=== PATIENT | male | born 1965 | race Caucasian/White ===

== ENCOUNTER → 2017-02-19 | Outpatient (CLI) | payer OTHER ==
[~2017-02-19] MED LIST: Iopamidol 755 MG/ML 500 ML Multipack Bottle IVPUSH STA
--- NOTE | 2017-02-19 11:10 | CT ---
EXAMINATION: CT chest with contrast HISTORY: Swelling COMPARISON: None TECHNIQUE: Axial CT images obtained through the chest following the administration of 75 mL of Isovu e-370 in the right antecubital fossa. Coronal and sagittal reconstructions obtained. FINDINGS: The lungs are clear without focal consolidation. No pleural effusion or pneumothorax. Ther e is mild dependent atelectasis. The heart is normal in size without a pericardial effusion. Nonpath ologically enlarged mediastinal and hilar lymph nodes are noted. The thoracic aorta is normal in alexander iber. The main and central pulmonary arteries are patent. The central airways are clear. No axillary lymphadenopathy. No lump or mass identified. The visualized images of the upper abdomen appear unremarkable. No suspicious osseous abnormalities. IMPRESSION: 1. No acute cardiopulmonary findings.
== END ==
LOC: MW.DI 08:49
DX: R22.2 Localized swelling, mass and lump, trunk (principal)
CPT/HCPCS: 71260; 71260-26

== ENCOUNTER → 2017-03-20 | Outpatient (CLI) | payer OTHER ==
--- NOTE | 2017-03-20 16:36 | CT ---
EXAMINATION: CT Soft tissue neck with and without contrast HISTORY: Unspecified voice and resonance disorder COMPARISON: None TECHNIQUE: Axial CT images obtained through the neck before and following the administration of 80 m L of Isovue-370 left antecubital fossa. Coronal and sagittal reconstructions obtained. FINDINGS: Healed nasopharyngeal and oropharyngeal mucosal structures appear symmetric. There are sma ll pockets of gas noted within the hypopharynx soft tissues predominantly inferior to the right piri form sinus and hyoid. This could represent an underlying piriform or upper airway diverticulum. Ther e is also mildly increased soft tissue within the region of the left para forearm sinus relative to the right. The larynx otherwise appears normal. The upper trachea is also normal. No bulky cervical lymphadenopathy. The parotid and submandibular glands appear normal. Thyroid gland is normal. The vi sualized paranasal sinuses, mastoid air cells, and middle ears are clear. No suspicious osseous abnormalities identified. IMPRESSION: 1. Asymmetrically increased soft tissue within the region of the left piriform sinus. There is also some mucosal gas pockets within the region of the hypopharynx, right greater than left. Direct visua lization may be beneficial.
== END ==
LOC: MW.DI 08:30
DX: R49.9 Unspecified voice and resonance disorder (principal); J34.89 Other specified disorders of nose and nasal sinuses
CPT/HCPCS: 70492; Q9967

== ENCOUNTER 2018-03-06 13:42 | Emergency (ER) | payer OTHER ==
[2018-03-06] MEDS ORDERED: Sodium Chloride 0.9% 10 ML Syringe FLUSH PRN (13:51)
[2018-03-06] MEDS ORDERED: Sodium Chloride 0.9% 2.5 ML Syringe FLUSH PRN (13:51)
[2018-03-06] MEDS ORDERED: Aspirin 81 MG Tab.Chew PO ONE (13:51)
[2018-03-06] MEDS ORDERED: Sodium Chloride 0.9% 1,000 ML IV ONE (13:51)
[2018-03-06] MEDS ORDERED: Diltiazem 25 MG/5 ML SDV IVPUSH ONE (13:51)
--- NOTE | 2018-03-06 13:58 | EDM.PDOC ---
ED HPI GENERAL MEDICAL PROBLEM - General Chief Complaint: Cardiovascular Problem Stated Complaint: UNK Time Seen by Provider: 03/06/18 13:49 - History of Present Illness INITIAL COMMENTS - FREE TEXT/NARRATIVE: HISTORY AND PHYSICAL: History of present illness: Patient is a 53-year-old male with no stated medical history who presents with on and off palpitations that started yesterday morning at 8 AM. He says that they were on and off yesterday symptoms lasting an hour or so but there was no discomfort with it no shortness of breath diaphoresis nausea vomiting or lightheadedness. He says that last evening to bed and slept fine and did not wake up with him overnight with the symptoms but this morning after he had been up for a while the symptoms restarted at 8 AM again. He presented to the [place] [facility] who did an EKG showing that he had new A. fib with RVR and embolus was called and he was transported here. The patient was given Cardizem 20 mg IV by paramedics in route for repeat that was variable from 120-180. The patient denies any discomfort with this nor does he have shortness of breath diaphoresis abdominal pain nausea vomiting or lightheadedness. The patient has a past social history of one pack a day smoking years old but he does not drink alcohol or do drugs. He admits that he drinks copious amounts of Dr. Oro all day. His dad had heart disease in his 50s this patient has never had a stress test or cardiac evaluation. No known history of thyroid problems and has been eating and drinking normally without diarrhea. He's had no recent illnesses that involve fevers chills coughing vomiting or diarrhea and has no abdominal complaints or leg swelling. Currently in the ED the patient says he does feel that his heart is beating fast and irregularly but has no discomfort with that or other symptoms Review of systems: As per history of present illness and below otherwise all systems reviewed and negative. Past medical history: As per history of present illness and as reviewed below otherwise noncontributory. Surgical history: As per history of present illness and as reviewed below otherwise noncontributory. Social history: No reported history of drug or alcohol abuse. Family history: As per history of present illness and as reviewed below otherwise noncontributory. Physical exam: General: Well-developed well-nourished man who is nontoxic and speaking clearly and easily in the ED. Vital signs of the note by me HEENT: Atraumatic, normocephalic, negative for conjunctival pallor or scleral icterus, mucous membranes moist, throat clear, neck supple, nontender, trachea midline. Lungs: Clear to auscultation, breath sounds equal bilaterally, chest nontender. No wheezing stridor or work of breathing Heart: S1S2, irregular rhythm and tachycardic rate which is variable on my evaluation and no overt murmurs, negative for clicks, rubs, or JVD. Abdomen: Soft, nondistended, nontender. Negative for masses or hepatosplenomegaly. NABS Pelvis: Stable nontender. Genitourinary: Deferred. Rectal: Deferred. Extremities: Atraumatic, negative for cords or calf pain. Neurovascular unremarkable. No pedal edema or leg asymmetry Neuro: Awake, alert, oriented. Cranial nerves II through XII unremarkable. Cerebellum unremarkable. Motor and sensory unremarkable throughout. Exam nonfocal. Diagnostics: EKG x 2, CBC CMP INR troponin TSH chest x-ray Therapeutics: IV O2 monitor IV fluids aspirin Cardizem Lovenox Please note that the nurse was giving her Cardizem and had only administered 5 mg when she noted on the monitor that he had converted to sinus rhythm. His heart rate on my reevaluation is in the 90s and I will repeat an EKG confirming sinus rhythm. The patient says he does feel improved. I called our marine mammal trainer Dr. Mercado at [phone] and he will see the patient after he is done with his clinic patients and recommend a care plan for home as as long as he stays converted he does not need to be admitted. 1545: There were some delays with getting the blood work performed and resulted and I've reviewed all those test results and they are negative. We are currently awaiting Dr. Mercado to come and see the patient and evaluate for discharge home, follow-up and medications. The patient continues to maintain sinus rhythm and is experiencing no symptoms. 1555: Dr. Mercado has seen the patient in the ED and will do a formal consult. Please see his notes for further details. He recommends that I sent him home on metoprolol succinate 25mg a day as well as aspirin 81 mg daily and [facility]. Patient is comfortable with this care plan. Impression: New A. fib with RVR, converted Definitive disposition and diagnosis as appropriate pending reevaluation and review of above. - Related Data Allergies Allergy/AdvReac Type Severity Reaction Status Date / Time No Known Allergies Allergy Verified 07/22/16 14:00 Home Meds: Home Meds . [No Known Home Meds] 07/18/14 [History] Past Medical History Other HEENT History: has upper denture Cardiovascular History: Reports: None Respiratory History: Reports: None Gastrointestinal History: Reports: None Genitourinary History: Reports: None Musculoskeletal History: Reports: Fracture Other Musculoskeletal History: fingers Neurological History: Reports: None Psychiatric History: Reports: None Endocrine/Metabolic History: Reports: Obesity/BMI 30+ Hematologic History: Reports: None Immunologic History: Reports: None Oncologic (Cancer) History: Reports: None Dermatologic History: Reports: Psoriasis - Past Surgical History GI Surgical History: Reports: Colonoscopy, Hernia, Inguinal Musculoskeletal Surgical History: Reports: Other (See Below) Social & Family History - Tobacco Use Smoking Status *Q: Current Every Day Smoker Years of Tobacco use: 35 Packs/Tins Daily: 2 - Alcohol Use Days Per Week of Alcohol Use: 0 - Recreational Drug Use Recreational Drug Use: No Drug Use in Last 12 Months: No ED ROS GENERAL - Review of Systems Review Of Systems: ROS reveals no pertinent complaints other than HPI. ED EXAM, GENERAL - Physical Exam Exam: See Below (See dictation) Course - Vital Signs Last Recorded V/S: Last Vital Signs Temp 37.9 C 03/06/18 13:51 Pulse 78 03/06/18 15:30 Resp 18 03/06/18 15:00 BP 115/74 03/06/18 15:30 Pulse Ox 99 03/06/18 15:00 - Orders/Labs/Meds Orders: Active Orders 24 hr Category Date Time Status Cardiac Monitoring [RC] . DIRECTED Care 03/06/18 13:50 Active EKG Documentation Completion [RC] STAT Care 03/06/18 13:50 Active EKG Documentation Completion [RC] STAT Care 03/06/18 14:05 Active Notify Provider Consults [RC] ASDIRECTED Care 03/06/18 14:07 Active Oxygen Therapy, ED [RC] ASDIRECTED Care 03/06/18 13:50 Active Pulse Oximetry [RC] ASDIRECTED Care 03/06/18 13:50 Active Consult to Physician [CONS] Stat Cons 03/06/18 14:07 Active Sodium Chloride 0.9% [Saline Flush] Med 03/06/18 13:51 Active 10 ml FLUSH ASDIRECTED PRN Sodium Chloride 0.9% [Saline Flush] Med 03/06/18 13:51 Active 2.5 ml FLUSH ASDIRECTED PRN Saline Lock Insert [OM.PC] Stat Oth 03/06/18 13:50 Ordered Medication Orders Sodium Chloride (Saline Flush) 10 ml FLUSH ASDIRECTED PRN PRN Reason: Keep Vein Open Sodium Chloride (Saline Flush) 2.5 ml FLUSH ASDIRECTED PRN PRN Reason: Keep Vein Open Labs: Laboratory Tests 03/06/18 03/06/18 03/06/18 Range/Units 14:58 14:58 14:58 WBC 7.00 (4.0-11.0) K/uL RBC 5.01 (4.50-5.90) M/uL Hgb 14.9 (13.0-17.0) g/dL Hct 44.0 (38.0-50.0) % MCV 87.8 (80.0-98.0) fL MCH 29.7 (27.0-32.0) pg MCHC 33.9 (31.0-37.0) g/dL RDW Std Deviation 43.8 (28.0-62.0) fl RDW Coeff of [place] 14 (11.0-15.0) % Plt Count 213 (150-400) K/uL MPV 9.10 (7.40-12.00) fL Neut % (Auto) 55.8 (48.0-80.0) % Lymph % (Auto) 35.0 (16.0-40.0) % [place] % (Auto) 5.7 (0.0-15.0) % Eos % (Auto) 3.1 (0.0-7.0) % Baso % (Auto) 0.4 (0.0-1.5) % Neut # (Auto) 3.9 (1.4-5.7) K/uL Lymph # (Auto) 2.5 H (0.6-2.4) K/uL [place] # (Auto) 0.4 (0.0-0.8) K/uL Eos # (Auto) 0.2 (0.0-0.7) K/uL Baso # (Auto) 0.0 (0.0-0.1) K/uL Nucleated RBC % 0.0 /100WBC Nucleated RBCs # 0 K/uL INR 0.94 Sodium 141 (136-148) mmol/L Potassium 3.8 (3.5-5.1) mmol/L Chloride 108 H (98-107) mmol/L Carbon Dioxide 26.5 (21.0-32.0) mmol/L BUN 8 (7.0-18.0) mg/dL Creatinine 1.1 (0.8-1.3) mg/dL Est Cr Clr Drug Dosing 81.11 mL/min Estimated GFR (MDRD) > 60.0 ml/min Glucose 120 H (74-106) mg/dL Calcium 8.9 (8.5-10.1) mg/dL Total Bilirubin 0.1 L (0.2-1.0) mg/dL AST 27 (15-37) IU/L ALT 32 (14-63) IU/L Alkaline Phosphatase 87 (46-116) U/L Troponin I < 0.050 (0.000-0.056) ng/mL Total Protein 6.4 (6.4-8.2) g/dL Albumin 3.3 L (3.4-5.0) g/dL Globulin 3.1 (2.0-3.5) g/dL Albumin/Globulin Ratio 1.1 L (1.3-2.8) TSH 3rd Generation 1.17 (0.36-3.74) uIU/mL Meds: Medications Generic Name Dose Route Start Last Admin Trade Name Freq PRN Reason Stop Dose Admin Sodium Chloride 10 ml 03/06/18 13:51 Saline Flush FLUSH ASDIRECTED PRN Keep Vein Open Sodium Chloride 2.5 ml 03/06/18 13:51 Saline Flush FLUSH ASDIRECTED PRN Keep Vein Open Discontinued Medications Generic Name Dose Route Start Last Admin Trade Name Freq PRN Reason Stop Dose Admin Aspirin 324 mg 03/06/18 13:51 03/06/18 14:01 Aspirin PO 03/06/18 13:52 324 mg ONETIME ONE Administration Diltiazem HCl 20 mg 03/06/18 13:51 03/06/18 14:01 Diltiazem IVPUSH 03/06/18 13:52 20 mg ONETIME ONE Administration Sodium Chloride 1,000 mls @ 999 mls/hr 03/06/18 13:51 03/06/18 14:01 Normal Saline IV 03/06/18 14:51 999 mls/hr STAT ONE Administration Departure - Departure Time of Disposition: 16:12 Disposition: Home, Self-Care 01 Condition: Good Clinical Impression: Atrial fibrillation, transient Referrals: PCP,Unknown [Primary Care Provider] - Forms: ED Department Discharge Additional Instructions: The following information is given to patients seen in the emergency department who are being discharged to home. This information is to outline your options for follow-up care. We provide all patients seen in our emergency department with a follow-up referral. The need for follow-up, as well as the timing and circumstances, are variable depending upon the specifics of your emergency department visit. If you don't have a primary care physician on staff, we will provide you with a referral. We always advise you to contact your personal physician following an emergency department visit to inform them of the circumstance of the visit and for follow-up with them and/or the need for any referrals to a consulting specialist. The emergency department will also refer you to a specialist when appropriate. This referral assures that you have the opportunity for followup care with a specialist. All of these measure are taken in an effort to provide you with optimal care, which includes your followup. Under all circumstances we always encourage you to contact your private physician who remains a resource for coordinating your care. When calling for followup care, please make the office aware that this follow-up is from your recent emergency room visit. If for any reason you are refused follow-up, please contact the [facility] emergency department at and ask to speak to the emergency department charge nurse. [facility] Primary care- Internal Medicine and Family [address] [address] Please fill and take the prescriptions as directed for the metoprolol succinate as well as taking an [id number] aspirin 81 mg once a day. Please call and schedule a follow-up appointment at the [place] clinic or call our clinic for follow- up appointment. Try to reduce your soda intake and increase water consumption. These also tried to reduce smoking. Return to ER as needed and as discussed - My Orders Last 24 Hours: My Active Orders 03/06/18 13:50 Cardiac Monitoring [RC] . DIRECTED EKG Documentation Completion [RC] STAT Oxygen Therapy, ED [RC] ASDIRECTED Pulse Oximetry [RC] ASDIRECTED Saline Lock Insert [OM.PC] Stat 03/06/18 13:51 Sodium Chloride 0.9% [Saline Flush] 10 ml FLUSH ASDIRECTED PRN Sodium Chloride 0.9% [Saline Flush] 2.5 ml FLUSH ASDIRECTED PRN 03/06/18 14:05 EKG Documentation Completion [RC] STAT 03/06/18 14:07 Notify Provider Consults [RC] ASDIRECTED Consult to Physician [CONS] Stat - Assessment/Plan Last 24 Hours: My Active Orders 03/06/18 13:50 Cardiac Monitoring [RC] . DIRECTED EKG Documentation Completion [RC] STAT Oxygen Therapy, ED [RC] ASDIRECTED Pulse Oximetry [RC] ASDIRECTED Saline Lock Insert [OM.PC] Stat 03/06/18 13:51 Sodium Chloride 0.9% [Saline Flush] 10 ml FLUSH ASDIRECTED PRN Sodium Chloride 0.9% [Saline Flush] 2.5 ml FLUSH ASDIRECTED PRN 03/06/18 14:05 EKG Documentation Completion [RC] STAT 03/06/18 14:07 Notify Provider Consults [RC] ASDIRECTED Consult to Physician [CONS] Stat
--- NOTE | 2018-03-06 14:49 | CR ---
EXAMINATION: Portable chest radiograph. HISTORY: Shortness of breath. FINDINGS: The trachea is midline. The cardiomediastinal silhouette is within normal limits. No pulmonary infilt rates, effusions or pneumothorax. Osseous structures appear unremarkable. IMPRESSION: No acute cardiopulmonary process.
[2018-03-06 15:45] LABS: CHLORIDE,CL 108 mmol/L (98-107); SODIUM,NA 141 mmol/L (136-148)
[2018-03-06 19:22] VITALS: BP 134/83
--- NOTE | 2018-03-09 08:50 | CONS ---
DATE OF CONSULTATION: DATE OF : 1965 PRIMARY CARE PHYSICIAN: Unknown PCP REASON FOR CONSULTATION: Atrial fibrillation. HISTORY OF PRESENT ILLNESS: This is a 53-year-old male gentleman who came into the emergency room due to the heart racing and palpitation. He was found to have an atrial fibrillation RVR with a heart rate of 137. He was given diltiazem 20 mg IV x1 and aspirin 324, and then he converted to sinus rhythm. He stated that he started feeling heart racing about an hour ago. He described the heart racing as a heart pumping hard, and it comes and goes. He started feeling the palpitations since yesterday when it comes, this could last about an hour and when he had a symptom of palpitation, he did not have related symptoms such as chest pain, clammy, dizziness, sweating, shortness of breath, and this morning when he was not doing anything, he started feeling heart pumping hard again, and then he came to the emergency room, he found to have an atrial fibrillation. He has not seen the doctor for 20 years. Denies any history of hypertension, high blood pressure or diabetes or stroke or heart failure. He has seen the providers in [facility]. He denied history of heart attack, heart failure, or stroke. PAST MEDICAL HISTORY: He is currently smoking. He denied drinking. He denied drug use. FAMILY HISTORY: Father had a history of hypertension, seizure. Mother had a history of heart attack at 70. Sibling are healthy, and he also has children, they are also healthy. 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 He does not have any problem doing the housework, and he can shovel the snow without any problem with chest pain or palpitations. ALLERGY: No known drug allergies. MEDICATIONS: None. PHYSICAL EXAMINATION: VITAL SIGNS: Initial blood pressure 125/85, heart rate of 137, temperature 37.9, O2 saturation is 99. HEENT: No pallor. No jaundice. No JVD. HEART: Normal S1, S2. No murmur. Regular rate and rhythm. LUNGS: Clear. No crackles. No wheezing. ABDOMEN: Soft, nontender. Bowel sounds are present. No hepatosplenomegaly. LEGS: No edema. Pulses equal both sides. REVIEW OF SYSTEMS: Has been negative except indicated in HPI. DIAGNOSTIC STUDIES: EKG on 03/06 at 1:45 p.m. showed atrial fibrillation, heart rate of 137, QRS duration 85 and EKG after diltiazem 20 mg IV 03/06/2018 shows sinus rhythm, heart rate of 91, SD interval 162, QRS duration 98, QTc interval 430. ASSESSMENT/PLAN: This is a 53-year-old male who has no prior cardiac history, presented to hospital with atrial fibrillation, RVR, converted spontaneously after diltiazem. Currently, he feels well. Vital signs been stable. No chest pain. Denies chest pain and his lab has been normal. Troponin was negative. EKG is no ST changes. He is stable enough to be discharged home. He should be following at the [facility]. I will give him the prescription for the beta reggie, Toprol-XL 25 mg once a day as well as he should take baby aspirin 81 mg once a day. He should follow with a doctor in the [facility] and possibly echocardiogram needs to be done. He also stated that he snore and sleep study needs to be done as well. LABORATORY STUDIES: CBC showed WBC of 7, hematocrit of 44, hemoglobin 14, and platelets 213. INR 0.94. Sodium 141, potassium 3.8, chloride 108, bicarb 26.5, BUN 8, creatinine 1.1, glucose 120. Troponin was negative. TSH is 1.17. RICK / CHIQUI /[id number]
== END 2018-03-06 16:15 | disposition home or self-care (01) ==
LOC: MW.ED 13:42
DX: I48.91 Unspecified atrial fibrillation (principal); F17.210 Nicotine dependence, cigarettes, uncomplicated
CPT/HCPCS: 36415; 71045; 80053; 84443; 84484; 85025; 85610; 93005; 96361; 96374; 99285; A9270; J3490; J7040

== ENCOUNTER 2021-10-19 22:28 | Emergency (ER) | payer OTHER ==
--- NOTE | 2021-10-19 22:51 | EDM.PDOC ---
ED HPI GENERAL MEDICAL PROBLEM - General Chief Complaint: General Stated Complaint: HEADACHE, SALTY TASTE, SINUS PAIN Time Seen by Provider: 10/19/21 22:41 Source of Information: Reports: Patient History Limitations: Reports: No Limitations - History of Present Illness INITIAL COMMENTS - FREE TEXT/NARRATIVE: Patient is a 56-year-old male presents today because he had a salty taste in his mouth and left-sided headache. He says a friend had the same symptoms and had Covid and wants to be tested. He otherwise has no other symptoms denies any chest pain fever chills nausea vomiting Face/Facial Pain Score (Numeric/FACES): 5 - Related Data Allergies Allergy/AdvReac Type Severity Reaction Status Date / Time No Known Allergies Allergy Verified 07/22/16 14:00 Home Meds: Home Meds Aspirin [Lyla Chewable Aspirin] 81 mg PO DAILY 10/19/21 [History] dilTIAZem HCL [Cardizem] 30 mg PO DAILY 10/19/21 [History] Past Medical History Other HEENT History: has upper denture Cardiovascular History: Reports: Afib Respiratory History: Reports: None Gastrointestinal History: Reports: None Genitourinary History: Reports: None Musculoskeletal History: Reports: Fracture Other Musculoskeletal History: fingers Neurological History: Reports: None Psychiatric History: Reports: None Endocrine/Metabolic History: Reports: Obesity/BMI 30+ Hematologic History: Reports: None Immunologic History: Reports: None Oncologic (Cancer) History: Reports: None Dermatologic History: Reports: Psoriasis - Infectious Disease History Infectious Disease History: Reports: Chicken Pox - Past Surgical History Head Surgeries/Procedures: Reports: None HEENT Surgical History: Reports: None Cardiovascular Surgical History: Reports: None Respiratory Surgical History: Reports: None GI Surgical History: Reports: Colonoscopy, Hernia, Inguinal Male Surgical History: Reports: None Endocrine Surgical History: Reports: None Neurological Surgical History: Reports: None Musculoskeletal Surgical History: Reports: Other (See Below) Other Musculoskeletal Surgeries/Procedures:: elbow surgery Oncologic Surgical History: Reports: None Dermatological Surgical History: Reports: None Social & Family History - Family History Cardiac: Reports: CAD Other Cardiac Family History: father had heart disease - Caffeine Use Caffeine Use: Reports: Energy Drinks - Recreational Drug Use Recreational Drug Use: No ED ROS GENERAL - Review of Systems Review Of Systems: See Below Constitutional: Reports: No Symptoms HEENT: Reports: No Symptoms Respiratory: Reports: No Symptoms Cardiovascular: Reports: No Symptoms Endocrine: Reports: No Symptoms GI/Abdominal: Reports: No Symptoms : Reports: No Symptoms Musculoskeletal: Reports: No Symptoms Skin: Reports: No Symptoms Neurological: Reports: Headache Psychiatric: Reports: No Symptoms Hematologic/Lymphatic: Reports: No Symptoms Immunologic: Reports: No Symptoms ED EXAM, GENERAL - Physical Exam Exam: See Below Exam Limited By: No Limitations General Appearance: Alert, WD/WN, No Apparent Distress Ears: Normal External Exam, Normal TMs Neck: Normal Inspection Respiratory/Chest: No Respiratory Distress GI/Abdominal: Normal Bowel Sounds, Soft, Non-Tender Extremities: Normal Inspection Neurological: Alert, Oriented, Normal Cognition, Normal Gait Course - Vital Signs Last Recorded V/S: Last Vital Signs Temp 96.9 F 10/19/21 22:35 Pulse 79 10/19/21 22:35 Resp 16 10/19/21 22:35 BP 136/73 10/19/21 22:35 Pulse Ox 97 10/19/21 22:35 - Orders/Labs/Meds Labs: Laboratory Tests 10/19/21 Range/Units 22:45 SARS-CoV-2 RNA (OSVALDO) NEGATIVE (NEGATIVE) Departure - Departure Time of Disposition: 23:40 Disposition: Home, Self-Care 01 Condition: Good Clinical Impression: General medical exam - Discharge Information *PRESCRIPTION DRUG MONITORING PROGRAM REVIEWED*: Not Applicable *COPY OF PRESCRIPTION DRUG MONITORING REPORT IN PATIENT JAY JAY: Not Applicable Instructions: Medical Screening Exam Forms: ED Department Discharge Additional Instructions: The following information is given to patients seen in the emergency department who are being discharged to home. This information is to outline your options for follow-up care. We provide all patients seen in our emergency department with a follow-up referral. The need for follow-up, as well as the timing and circumstances, are variable depending upon the specifics of your emergency department visit. If you don't have a primary care physician on staff, we will provide you with a referral. We always advise you to contact your personal physician following an emergency department visit to inform them of the circumstance of the visit and for follow-up with them and/or the need for any referrals to a consulting specialist. The emergency department will also refer you to a specialist when appropriate. This referral assures that you have the opportunity for follow-up care with a specialist. All of these measure are taken in an effort to provide you with optimal care, which includes your follow-up. Under all circumstances we always encourage you to contact your private physician who remains a resource for coordinating your care. When calling for follow-up care, please make the office aware that this follow-up is from your recent emergency room visit. If for any reason you are refused follow-up, please contact the [facility] Emergency Department at and asked to speak to the emergency department charge nurse. Please follow up with your primary care physician. If you do not have a primary care physician, see below: [facility] [address] [place] [id number] [facility] [address] [place] [address] Sepsis Event Note (ED) - Evaluation Sepsis Screening Result: No Definite Risk - Focused Exam Vital Signs: Vital Signs Temp Pulse Resp BP Pulse Ox 10/19/21 22:35 96.9 F 79 16 136/73 97 - Assessment/Plan Plan: Patient is a 56-year-old male presents today for headache and change in taste and smell. Patient believes he has Covid we will test and reassess.
[2021-10-19 23:46] VITALS: BP 127/74; PULSE 75
== END 2021-10-19 23:47 | disposition home or self-care (01) ==
LOC: MW.ED 22:28
DX: Z00.8 Encounter for other general examination (principal); I48.91 Unspecified atrial fibrillation; E66.9 Obesity, unspecified; Z68.31 Body mass index [BMI] 31.0-31.9, adult; Z79.82 Long term (current) use of aspirin; Z20.822 Contact with and (suspected) exposure to COVID-19
CPT/HCPCS: 99283; U0002

== ENCOUNTER 2021-11-08 05:04 | Emergency (ER) | payer OTHER ==
[2021-11-08] MEDS ORDERED: Sodium Chloride 0.9% 2.5 ML Syringe FLUSH PRN (05:20)
[2021-11-08] MEDS ORDERED: Sodium Chloride 0.9% 10 ML Syringe FLUSH PRN (05:20)
--- NOTE | 2021-11-08 05:26 | EDM.PDOC ---
<Bill,Abram - Last Filed: 11/08/21 06:03> ED HPI GENERAL MEDICAL PROBLEM - General Chief Complaint: Cardiovascular Problem Stated Complaint: IRREGULAR HEART BEAT, PRESSURE Time Seen by Provider: 11/08/21 05:13 - History of Present Illness INITIAL COMMENTS - FREE TEXT/NARRATIVE: 56-year-old male history of A. fib on Cardizem as well as a baby aspirin daily presenting with now resolved palpitations and right-sided chest pain. Patient has experienced palpitations on and off for the last few days. Normally takes 120 mg of Cardizem once daily but he has been taking it twice daily for the last 3 days. He has been experiencing short periods of palpitations. He had one started around 1 AM and resolved just prior to being evaluated here in the emergency department. The palpitations were associated with a 1 out of 10 nonradiating right sided chest ache. No shortness of breath no lightheadedness or dizziness no syncope or near syncope. Patient is a smoker. Very minimal alcohol use no other drug use. No clear trigger for the symptoms. The patient is asymptomatic at this time. Right Upper Chest Pain Score (Numeric/FACES): 1 - Related Data Allergies Allergy/AdvReac Type Severity Reaction Status Date / Time No Known Allergies Allergy Verified 11/08/21 05:30 Home Meds: Home Meds Aspirin [Lyla Chewable Aspirin] 81 mg PO DAILY 10/19/21 [History] dilTIAZem HCL [Cardizem] 30 mg PO DAILY 10/19/21 [History] Past Medical History Other HEENT History: has upper denture Cardiovascular History: Reports: Afib Respiratory History: Reports: None Gastrointestinal History: Reports: None Genitourinary History: Reports: None Musculoskeletal History: Reports: Fracture Other Musculoskeletal History: fingers Neurological History: Reports: None Psychiatric History: Reports: None Endocrine/Metabolic History: Reports: Obesity/BMI 30+ Hematologic History: Reports: None Immunologic History: Reports: None Oncologic (Cancer) History: Reports: None Dermatologic History: Reports: Psoriasis - Infectious Disease History Infectious Disease History: Reports: Chicken Pox - Past Surgical History Head Surgeries/Procedures: Reports: None HEENT Surgical History: Reports: None Cardiovascular Surgical History: Reports: None Respiratory Surgical History: Reports: None GI Surgical History: Reports: Colonoscopy, Hernia, Inguinal Male Surgical History: Reports: None Endocrine Surgical History: Reports: None Neurological Surgical History: Reports: None Musculoskeletal Surgical History: Reports: Other (See Below) Other Musculoskeletal Surgeries/Procedures:: elbow surgery Oncologic Surgical History: Reports: None Dermatological Surgical History: Reports: None Social & Family History - Family History Cardiac: Reports: CAD Other Cardiac Family History: father had heart disease - Caffeine Use Caffeine Use: Reports: Energy Drinks ED ROS GENERAL - Review of Systems Review Of Systems: See Below Free Text/Narrative/Comment: General: No fever. Skin: No rash. Eyes: No vision problems. ENT: No sore throat. Neck: No neck stiffness. Respiratory: No shortness of breath. Cardiac: Per HPI Gastrointestinal: No nausea, vomiting or abdominal pain. Urinary: No dysuria. Musculoskeletal: No myalgias/arthralgias. Neurologic: No headache. ED EXAM, GENERAL - Physical Exam Exam: See Below Free Text/Narrative:: General Appearance: No acute distress, appears comfortable Skin: No rash HEENT: Normocephalic/atraumatic, sclera anicteric, mucous membranes moist Neck: Normal range of motion Chest and Lungs: Bilateral breath sounds, clear to auscultation Cardiovascular: Regular rate and rhythm Abdomen: Soft, non-tender Back: Normal Musculoskeletal: No edema or tenderness Neurologic: Awake, alert, no obvious deficits, moving all extremities Psychiatric: Appropriate, cooperative #1 Interpretation EKG Date: 11/08/21 Time: 05:23 EKG Interpretation Comments: Normal sinus rhythm rate of 83 normal axis and intervals no acute ischemia normal EKG Departure - Departure Disposition: Home, Self-Care 01 Condition: Good Clinical Impression: Chest pain, Paroxysmal A-fib Instructions: Atrial Fibrillation Referrals: Dequan Can MD [Physician] - Forms: ED Department Discharge Additional Instructions: Your EKG today showed that you are currently in a normal sinus rhythm. However, it is possible that you are going in and out of atrial fibrillation. Despite this your risk of stroke based on your other risk factors is quite low and it is most appropriate to continue with the baby aspirin. I do encourage you to continue to take your medications and to follow-up with your neck band setter. If your symptoms worsen or you have any other new symptoms that concern you please call your doctor or return to the ER. The following information is given to patients seen in the emergency department who are being discharged to home. This information is to outline your options for follow-up care. We provide all patients seen in our emergency department with a follow-up referral. The need for follow-up, as well as the timing and circumstances, are variable depending upon the specifics of your emergency department visit. If you don't have a primary care physician on staff, we will provide you with a referral. We always advise you to contact your personal physician following an emergency department visit to inform them of the circumstance of the visit and f or follow-up with them and/or the need for any referrals to a consulting specialist. The emergency department will also refer you to a specialist when appropriate. This referral assures that you have the opportunity for follow-up care with a specialist. All of these measure are taken in an effort to provide you with optimal care, which includes your follow-up. Under all circumstances we always encourage you to contact your private physician who remains a resource for coordinating your care. When calling for follow-up care, please make the office aware that this follow-up is from your recent emergency room visit. If for any reason you are refused follow-up, please contact the [facility] Emergency Department at and asked to speak to the emergency department charge nurse. - Assessment/Plan Assessment:: 56-year-old male presenting with now resolved right-sided chest pain. ACS needs to be considered. However his EKG is normal and his heart score is quite low at 2. CBC, BMP, troponin and chest x-ray pending. PE considered but felt unlikely aortic dissection considered but felt very unlikely pain is neither pleuritic nor tearing he is not hypertensive and has no history of hypertension pain does not radiate to the back. Paroxysmal A. fib I think could certainly explain his symptoms. His [id number] 2 score is 0 so he is appropriately not on any type of anticoagulation. He remains in normal sinus rhythm and asymptomatic and labs are reassuring that he could follow-up with his [facility] ologist as an outpatient. 0600: Initial labs and CXR are unremarkable. Pt remains in NSR and sx free at this time. Given the time course recommend repeat trop at 0730. If 2nd trop also reassuring then would likely be stable for dc. <Jd Jarrett - Last Filed: 11/08/21 08:10> Course - Vital Signs Last Recorded V/S: Last Vital Signs Temp 36.7 C 11/08/21 05:25 Pulse 77 11/08/21 06:29 Resp 19 11/08/21 06:29 BP 128/82 11/08/21 06:29 Pulse Ox 94 L 11/08/21 06:29 - Orders/Labs/Meds Orders: Active Orders 24 hr Category Date Time Status Sodium Chloride 0.9% [Saline Flush] Med 11/08/21 05:20 Active 10 ml FLUSH ASDIRECTED PRN Sodium Chloride 0.9% [Saline Flush] Med 11/08/21 05:20 Active 2.5 ml FLUSH ASDIRECTED PRN Saline Lock Insert [OM.PC] Stat Oth 11/08/21 05:20 Ordered Medication Orders Sodium Chloride (Sodium Chloride 0.9% 10 Ml Syringe) 10 ml FLUSH ASDIRECTED PRN PRN Reason: Keep Vein Open Sodium Chloride (Sodium Chloride 0.9% 2.5 Ml Syringe) 2.5 ml FLUSH ASDIRECTED PRN PRN Reason: Keep Vein Open Labs: Laboratory Tests 11/08/21 11/08/21 11/08/21 Range/Units 05:25 05:25 07:35 WBC 12.74 H (4.0-11.0) K/uL RBC 4.63 (4.50-5.90) M/uL Hgb 14.1 (13.0-17.0) g/dL Hct 41.4 (38.0-50.0) % MCV 89.4 (80.0-98.0) fL MCH 30.5 (27.0-32.0) pg MCHC 34.1 (31.0-37.0) g/dL RDW Std Deviation 44.7 (28.0-62.0) fl RDW Coeff of [place] 14 (11.0-15.0) % Plt Count 249 (150-400) K/uL MPV 9.30 (7.40-12.00) fL Neut % (Auto) 50.9 (48.0-80.0) % Lymph % (Auto) 35.7 (16.0-40.0) % [place] % (Auto) 8.0 (0.0-15.0) % Eos % (Auto) 5.2 (0.0-7.0) % Baso % (Auto) 0.2 (0.0-1.5) % Neut # (Auto) 6.5 H (1.4-5.7) K/uL Lymph # (Auto) 4.6 H (0.6-2.4) K/uL [place] # (Auto) 1.0 H (0.0-0.8) K/uL Eos # (Auto) 0.7 (0.0-0.7) K/uL Baso # (Auto) 0.0 (0.0-0.1) K/uL Nucleated RBC % 0.0 /100WBC Nucleated RBCs # 0 K/uL Sodium 138 (136-148) mmol/L Potassium 4.0 (3.5-5.1) mmol/L Chloride 104 (98-107) mmol/L Carbon Dioxide 24.2 (21.0-32.0) mmol/L BUN 18 (7.0-18.0) mg/dL Creatinine 0.9 (0.8-1.3) mg/dL Est Cr Clr Drug Dosing TNP Estimated GFR (MDRD) > 60.0 ml/min Glucose 103 (74-106) mg/dL Calcium 9.4 (8.5-10.1) mg/dL Magnesium 2.4 (1.8-2.4) mg/dL Troponin I < 0.050 < 0.050 (0.000-0.056) ng/mL Meds: Medications Generic Name Dose Route Start Last Admin Trade Name Freq PRN Reason Stop Dose Admin Sodium Chloride 10 ml 11/08/21 05:20 Sodium Chloride 0.9% 10 Ml Syringe FLUSH ASDIRECTED PRN Keep Vein Open Sodium Chloride 2.5 ml 11/08/21 05:20 Sodium Chloride 0.9% 2.5 Ml Syringe FLUSH ASDIRECTED PRN Keep Vein Open - Re-Assessments/Exams Free Text/Narrative Re-Assessment/Exam: 11/08/21 08:09 Patient is comfortable and repeat troponin is negative. Departure - Departure Time of Disposition: 08:10 Condition: Good Sepsis Event Note (ED) - Focused Exam Vital Signs: Vital Signs Temp Pulse Resp BP Pulse Ox 11/08/21 06:29 77 19 128/82 94 L 11/08/21 05:25 36.7 C 83 18 139/76 97
[2021-11-08 05:52] LABS: BLOOD UREA NITROGEN,BUN 18 mg/dL (7.0-18.0); CARBON DIOXIDE,CO2 24.2 mmol/L (21.0-32.0); CHLORIDE,CL 104 mmol/L (98-107); GLUCOSE RANDOM 103 mg/dL (74-106); SODIUM,NA 138 mmol/L (136-148)
--- NOTE | 2021-11-08 06:10 | CR ---
INDICATION: Chest pain COMPARISON: March 06, 2018 TECHNIQUE: Single-view chest radiograph FINDINGS: TUBES AND LINES: None. HEART AND MEDIASTINUM: The heart size is normal. The mediastinal contour appears normal for patient age. LUNGS AND PLEURAL SPACES: The lungs appear normal.The pleural spaces are unremarkable. OSSEOUS STRUCTURES: Age-appropriate appearance. No acute focal finding. IMPRESSION: No evidence of active pulmonary disease. Dictated by Lake Dunbar MD @ 11/08/2021 6:09:56 AM (Electronically Signed)
[2021-11-08 06:31] VITALS: PULSE 77
[2021-11-08 08:44] VITALS: BP 115/72
== END 2021-11-08 08:25 | disposition home or self-care (01) ==
LOC: MW.ED 05:04
DX: I48.0 Paroxysmal atrial fibrillation (principal); E66.9 Obesity, unspecified; Z68.32 Body mass index [BMI] 32.0-32.9, adult; Z79.82 Long term (current) use of aspirin
CPT/HCPCS: 36415; 71045; 71045-26; 80048; 83735; 84484; 85025; 93005; 99285-25

== ENCOUNTER 2022-06-24 11:15 | Emergency (ER) | payer OTHER ==
[2022-06-24 12:20] LABS: CARBON DIOXIDE,CO2 29.1 mmol/L (21.0-32.0); POTASSIUM,K 4.3 mmol/L (3.5-5.1)
[2022-06-24] MEDS ORDERED: Iopamidol 755 MG/ML 500 ML Multipack Bottle IVPUSH STA (13:08)
[2022-06-24] MEDS ORDERED: Sodium Chloride 0.9% 1,000 ML IV ONE (17:12)
[2022-06-24] MEDS ORDERED: Nicotine 21 MG/24 Hr Patch TRDERM ONE (17:12)
[2022-06-25 03:19] VITALS: BP 130/77; PULSE 74
== END 2022-06-24 18:40 ==
LOC: MW.ED 11:15
DX: R53.1 Weakness (principal); R20.9 Unspecified disturbances of skin sensation; R30.0 Dysuria; I48.91 Unspecified atrial fibrillation; E66.9 Obesity, unspecified; Z79.01 Long term (current) use of anticoagulants; Z20.822 Contact with and (suspected) exposure to COVID-19; Z68.34 Body mass index [BMI] 34.0-34.9, adult
CPT/HCPCS: 36415; 70450; 71045; 71275; 72131; 74174; 80053; 81003; 84443; 84484; 85025; 87635; 93005; 96360; 99285; A9270; J7030; Q9967; 93010; U0002

== ENCOUNTER 2022-07-04 19:22 | Emergency (ER) | payer OTHER ==
[2022-07-04 21:05] LABS: CARBON DIOXIDE,CO2 24.3 mmol/L (21.0-32.0); POTASSIUM,K 4.4 mmol/L (3.5-5.1)
[2022-07-04 23:10] VITALS: BP 125/72; PULSE 78
== END 2022-07-04 23:43 ==
LOC: MW.ED 19:22
DX: U07.1 COVID-19 (principal); G35 Multiple sclerosis; E66.9 Obesity, unspecified; Z88.8 Allergy status to other drugs, medicaments and biological substances; Z68.28 Body mass index [BMI] 28.0-28.9, adult
CPT/HCPCS: 36415; 51702; 70450; 70450-26; 73521; 73521-26; 73560-26-RT; 73560-RT; 80053; 81001; 84443; 84484; 85025; 99285; 99285-25; U0002

== ENCOUNTER 2022-12-01 16:22 | Emergency (ER) | payer OTHER ==
[2022-12-01 16:48] VITALS: BP 131/87; PULSE 95
== END 2022-12-01 18:25 | disposition home or self-care (01) ==
LOC: MW.ED 16:22
DX: R33.9 Retention of urine, unspecified (principal); E66.9 Obesity, unspecified; Z68.28 Body mass index [BMI] 28.0-28.9, adult
CPT/HCPCS: 51702; 99283

== ENCOUNTER 2022-12-06 21:46 | Emergency (ER) | payer OTHER ==
[2022-12-06 21:57] VITALS: BP 137/75; PULSE 81
== END 2022-12-06 23:18 | disposition home or self-care (01) ==
LOC: MW.ED 21:46
DX: T83.098A Other mechanical complication of other urinary catheter, initial encounter (principal); E66.9 Obesity, unspecified; Z68.28 Body mass index [BMI] 28.0-28.9, adult; Z79.899 Other long term (current) drug therapy
CPT/HCPCS: 51702; 99283; 99284

== ENCOUNTER 2022-12-14 23:30 | Emergency (ER) | payer OTHER ==
[2022-12-15] MEDS ORDERED: Cefdinir 300 MG Cap PO ONE (00:58)
[2022-12-15 01:41] VITALS: BP 133/76; PULSE 77
== END 2022-12-15 01:40 | disposition home or self-care (01) ==
LOC: MW.ED 23:30
DX: T83.021A Displacement of indwelling urethral catheter, initial encounter (principal); N39.0 Urinary tract infection, site not specified; G35 Multiple sclerosis; I48.91 Unspecified atrial fibrillation; E66.9 Obesity, unspecified; Z68.27 Body mass index [BMI] 27.0-27.9, adult; Z79.899 Other long term (current) drug therapy
CPT/HCPCS: 51702; 81001; 99283; A9270

== ENCOUNTER 2023-01-30 14:04 | Inpatient (IN) | payer OTHER ==
[2023-01-30] MEDS ORDERED: Sodium Chloride 0.9% 2.5 ML Syringe FLUSH PRN (14:16)
[2023-01-30] MEDS ORDERED: Sodium Chloride 0.9% 10 ML Syringe FLUSH PRN (14:16)
[2023-01-30 14:58] LABS: CARBON DIOXIDE,CO2 23.8 mmol/L (21.0-32.0); POTASSIUM,K 4.1 mmol/L (3.5-5.1)
[2023-01-30] MEDS ORDERED: VANCOmycin 1.25 GM/250 ML 1.25 GM in Premix Bag 1 BAG IV ONE ×2 (15:30→17:00)
[2023-01-30] MEDS ORDERED: Sodium Chloride 0.9% 1,000 ML IV ONE (15:53)
[2023-01-30] MEDS ORDERED: Iopamidol 755 MG/ML 500 ML Multipack Bottle IVPUSH STA (16:08)
[2023-01-30] MEDS ORDERED: Piperacillin/Tazobactam 3.375 GM in Sodium Chloride 0.9% 50 ML IV ONE ×2 (16:16→16:30)
[2023-01-30] MEDS: Sodium Chloride 0.9% 1,000 ML IV SCH (19:05)
[2023-01-30] MEDS ORDERED: Ibuprofen 400 MG Tab PO PRN (19:15)
[2023-01-30] MEDS ORDERED: Acetaminophen 325 MG Tab PO PRN (19:16)
[2023-01-30] MEDS ORDERED: Sodium Chloride 0.9% 50 ML ONE (21:56)
[2023-01-30] MEDS: Piperacillin/Tazobactam 3.375 GM in Sodium Chloride 0.9% 50 ML IV SCH (22:04)
[2023-01-30] MEDS ORDERED: oxyCODONE 5 MG Tab PO PRN (23:28)
[2023-01-30] MEDS: Gabapentin 300 MG Cap PO SCH (23:36)
[2023-01-30] MEDS: Baclofen 10 MG Tab PO SCH (23:36)
[2023-01-31] MEDS: Enoxaparin 40 MG/0.4 ML Syringe SUBCUT SCH ×2 (00:13→23:34)
[2023-01-31] MEDS ORDERED: Sodium Chloride 0.9% 50 ML ONE (03:08)
[2023-01-31] MEDS: Sodium Chloride 0.9% 1,000 ML IV SCH ×3 (03:12→18:16)
[2023-01-31] MEDS: Piperacillin/Tazobactam 3.375 GM in Sodium Chloride 0.9% 50 ML IV SCH ×4 (03:19→21:15)
[2023-01-31] MEDS: Gabapentin 300 MG Cap PO SCH ×4 (06:11→23:34)
[2023-01-31] MEDS: Baclofen 10 MG Tab PO SCH ×4 (06:11→23:34)
[2023-01-31 06:52] LABS: POTASSIUM,K 4.1 mmol/L (3.5-5.1)
[2023-01-31] MEDS: Metoprolol Succinate 25 MG Tab.ER PO SCH (08:09)
[2023-01-31] MEDS: Cholecalciferol (Vitamin D3) 25 MCG Tab PO SCH (08:14)
[2023-01-31] MEDS: Teriflunomide [Aubagio] 14 MG Tablet PO SCH (09:41)
[2023-02-01] MEDS: Piperacillin/Tazobactam 3.375 GM in Sodium Chloride 0.9% 50 ML IV SCH ×2 (03:23→09:19)
[2023-02-01] MEDS: Sodium Chloride 0.9% 1,000 ML IV SCH (03:23)
[2023-02-01] MEDS: Baclofen 10 MG Tab PO SCH ×2 (06:37→12:00)
[2023-02-01] MEDS: Gabapentin 300 MG Cap PO SCH ×2 (06:37→12:00)
[2023-02-01 07:43] LABS: CARBON DIOXIDE,CO2 23.3 mmol/L (21.0-32.0); POTASSIUM,K 3.6 mmol/L (3.5-5.1)
[2023-02-01] MEDS: Cholecalciferol (Vitamin D3) 25 MCG Tab PO SCH (09:18)
[2023-02-01] MEDS: Metoprolol Succinate 25 MG Tab.ER PO SCH (09:19)
[2023-02-01] MEDS: Teriflunomide [Aubagio] 14 MG Tablet PO SCH (09:21)
[2023-02-01 12:17] VITALS: BP 140/80; PULSE 83
[2023-02-01] MEDS ORDERED: VANCOmycin 1.5 GM/300 ML 1.5 GM in Premix Bag 1 BAG IV SCH (14:30)
== END 2023-02-01 13:56 | disposition home or self-care (01) | DRG 728 ==
LOC: MW.ED 14:04 → EEVIPCON 17:00 → MW.MS 17:00
PROVIDERS: ADMIT Internal Medicine; ATTEND Internal Medicine
DX: N49.2 Inflammatory disorders of scrotum (principal); N45.3 Epididymo-orchitis; R32 Unspecified urinary incontinence; F32.A Depression, unspecified; F43.10 Post-traumatic stress disorder, unspecified; Z79.82 Long term (current) use of aspirin; Z99.3 Dependence on wheelchair; Z79.899 Other long term (current) drug therapy; Z86.16 Personal history of COVID-19; Z87.891 Personal history of nicotine dependence
CPT/HCPCS: 36415; 51702; 74177; 74177-26; 76870; 76870-26; 80048; 80053; 80202; 81001; 83605; 85025; 87040; 87086; 87088; 87186; 93976; 93976-26; 96365; 96367; 99285-25; A9270-GY; J1650; J2543; J3370; J3490; J7030; J7050; Q9967

== ENCOUNTER 2023-03-20 12:55 | Emergency (ER) | payer OTHER ==
[2023-03-20 14:00] VITALS: BP 137/87; PULSE 82
== END 2023-03-20 14:54 | disposition home or self-care (01) ==
LOC: MW.ED 12:55
DX: Z46.6 Encounter for fitting and adjustment of urinary device (principal); I48.91 Unspecified atrial fibrillation; E66.9 Obesity, unspecified; Z68.33 Body mass index [BMI] 33.0-33.9, adult; Z79.82 Long term (current) use of aspirin; Z86.16 Personal history of COVID-19; Z87.891 Personal history of nicotine dependence
CPT/HCPCS: 51702; 99282; 99283

== ENCOUNTER 2023-03-28 23:30 | Emergency (ER) | payer OTHER ==
[2023-03-29 02:33] VITALS: BP 110/70; PULSE 78
== END 2023-03-29 01:00 | disposition home or self-care (01) ==
LOC: MW.ED 23:30
DX: Z46.6 Encounter for fitting and adjustment of urinary device (principal); I48.91 Unspecified atrial fibrillation; E66.9 Obesity, unspecified; Z68.33 Body mass index [BMI] 33.0-33.9, adult; Z86.16 Personal history of COVID-19; Z79.899 Other long term (current) drug therapy
CPT/HCPCS: 99283

== ENCOUNTER 2023-03-29 16:11 | Emergency (ER) | payer OTHER ==
[2023-03-29 16:35] VITALS: BP 120/77; PULSE 90
== END 2023-03-29 19:18 | disposition home or self-care (01) ==
LOC: MW.ED 16:11
DX: Z46.6 Encounter for fitting and adjustment of urinary device (principal); I48.91 Unspecified atrial fibrillation; E66.9 Obesity, unspecified; Z68.33 Body mass index [BMI] 33.0-33.9, adult; Z87.891 Personal history of nicotine dependence
CPT/HCPCS: 51702; 99283-25

== ENCOUNTER 2023-04-01 13:43 | Emergency (ER) | payer OTHER ==
[2023-04-01 14:53] VITALS: BP 144/77; PULSE 66
== END 2023-04-01 15:35 | disposition home or self-care (01) ==
LOC: MW.ED 13:43
DX: Z46.6 Encounter for fitting and adjustment of urinary device (principal); I48.91 Unspecified atrial fibrillation; E66.9 Obesity, unspecified; Z68.33 Body mass index [BMI] 33.0-33.9, adult; Z86.16 Personal history of COVID-19; Z79.899 Other long term (current) drug therapy
CPT/HCPCS: 51702; 99283-25

== ENCOUNTER 2023-04-09 19:25 | Emergency (ER) | payer OTHER ==
[2023-04-09] MEDS ORDERED: Cephalexin 500 MG Cap PO ONE (20:14)
[2023-04-10 00:27] VITALS: BP 130/85; PULSE 78
== END 2023-04-09 20:29 | disposition home or self-care (01) ==
LOC: MW.ED 19:25
DX: Z46.6 Encounter for fitting and adjustment of urinary device (principal); L98.411 Non-pressure chronic ulcer of buttock limited to breakdown of skin; I48.91 Unspecified atrial fibrillation; E66.9 Obesity, unspecified; Z68.33 Body mass index [BMI] 33.0-33.9, adult; Z86.16 Personal history of COVID-19; Z79.899 Other long term (current) drug therapy; Z79.82 Long term (current) use of aspirin
CPT/HCPCS: 51702; 99283; A9270

== ENCOUNTER 2023-04-16 16:35 | Emergency (ER) | payer OTHER ==
[2023-04-16 17:22] VITALS: BP 146/68; PULSE 96
== END 2023-04-16 19:00 | disposition home or self-care (01) ==
LOC: MW.ED 16:35
DX: Z46.6 Encounter for fitting and adjustment of urinary device (principal); T83.038D Leakage of other urinary catheter, subsequent encounter; I48.91 Unspecified atrial fibrillation; E66.9 Obesity, unspecified; Z68.33 Body mass index [BMI] 33.0-33.9, adult; Z86.16 Personal history of COVID-19; Z79.899 Other long term (current) drug therapy
CPT/HCPCS: 51702; 99283

== ENCOUNTER 2023-05-18 12:05 | Emergency (ER) | payer OTHER ==
[2023-05-18 13:18] VITALS: BP 145/88; PULSE 102
[2023-05-18 14:36] LABS: APPEARANCE,URINE SLT CLOUDY; BILIRUBIN,URINE NEGATIVE (NEGATIVE); COLOR,URINE YELLOW; GLUCOSE,URINE NEGATIVE (NEGATIVE); KETONES,URINE NEGATIVE (NEGATIVE); LEUKOCYTE ESTERASE,URINE MODERATE (NEGATIVE); NITRITE,URINE POSITIVE (NEGATIVE); OCCULT BLOOD,URINE SMALL (NEGATIVE); PROTEIN,URINE NEGATIVE (NEGATIVE); UROBILINOGEN,URINE 0.2 EU/dL (<2.0)
[2023-05-18 14:49] LABS: BACTERIA,URINE 3+ (NEGATIVE); EPITHELIAL CELLS,URINE RARE (NONE-FEW); WBC,URINE 60-80 (0-5/HPF)
== END 2023-05-18 14:38 | disposition home or self-care (01) ==
LOC: MW.ED 12:05
DX: Z46.6 Encounter for fitting and adjustment of urinary device (principal); N39.0 Urinary tract infection, site not specified; I48.91 Unspecified atrial fibrillation; E66.9 Obesity, unspecified; Z86.16 Personal history of COVID-19; Z79.82 Long term (current) use of aspirin; Z68.32 Body mass index [BMI] 32.0-32.9, adult
CPT/HCPCS: 51702; 81001; 87086; 87088; 87186; 99283

== ENCOUNTER 2023-05-23 09:18 | Day surgery (SDC) | payer OTHER ==
[~2023-05-23 09:18] MED LIST changes: -Iopamidol 755 MG/ML 500 ML Multipack Bottle IVPUSH STA; +Lactated Ringers 1,000 ML IV SCH
[2023-05-23] MEDS ORDERED: fentaNYL 100 MCG/2 ML SDV ONE (10:06)
[2023-05-23] MEDS ORDERED: Propofol 200 MG/20 ML SDV ONE (10:06)
[2023-05-23] MEDS ORDERED: Lidocaine 2% 5 ML SDV ONE (10:06)
[2023-05-23 13:21] VITALS: BP 118/78; PULSE 65
== END 2023-05-23 12:43 | disposition home or self-care (01) ==
LOC: MW.SDS 09:18
PROVIDERS: ATTEND Surgery
DX: K62.1 Rectal polyp (principal); A63.0 Anogenital (venereal) warts; I48.91 Unspecified atrial fibrillation; K21.9 Gastro-esophageal reflux disease without esophagitis; H91.92 Unspecified hearing loss, left ear; E78.5 Hyperlipidemia, unspecified; I10 Essential (primary) hypertension; G35 Multiple sclerosis; E66.9 Obesity, unspecified; F43.10 Post-traumatic stress disorder, unspecified; R06.02 Shortness of breath; E55.9 Vitamin D deficiency, unspecified; J38.3 Other diseases of vocal cords; Z79.82 Long term (current) use of aspirin; Z79.899 Other long term (current) drug therapy; Z80.0 Family history of malignant neoplasm of digestive organs; Z87.891 Personal history of nicotine dependence; Z68.32 Body mass index [BMI] 32.0-32.9, adult
CPT/HCPCS: 45380; J2704; J3010; J7120; J3490

== ENCOUNTER 2023-06-12 10:44 | Emergency (ER) | payer OTHER ==
[2023-06-12 12:10] VITALS: BP 137/86
[2023-06-12 13:06] VITALS: PULSE 76
== END 2023-06-12 13:06 | disposition home or self-care (01) ==
LOC: MW.ED 10:44
DX: R33.9 Retention of urine, unspecified (principal); E66.9 Obesity, unspecified; Z68.31 Body mass index [BMI] 31.0-31.9, adult; Z86.16 Personal history of COVID-19; Z79.82 Long term (current) use of aspirin; Z79.899 Other long term (current) drug therapy
CPT/HCPCS: 99283

== ENCOUNTER 2023-07-09 18:28 | Emergency (ER) | payer OTHER ==
[2023-07-09] MEDS ORDERED: Ciprofloxacin 500 MG Tab PO ONE (19:46)
[2023-07-09 20:02] LABS: BILIRUBIN,URINE NEGATIVE (NEGATIVE); GLUCOSE,URINE NEGATIVE (NEGATIVE); KETONES,URINE NEGATIVE (NEGATIVE); LEUKOCYTE ESTERASE,URINE MODERATE (NEGATIVE); NITRITE,URINE POSITIVE (NEGATIVE); OCCULT BLOOD,URINE LARGE (NEGATIVE); PH,URINE 5.5 (5.0-8.0); PROTEIN,URINE TRACE mg/dL (NEGATIVE); UROBILINOGEN,URINE 0.2 EU/dL (<2.0)
[2023-07-09 20:15] LABS: APPEARANCE,URINE CLOUDY; COLOR,URINE BROWN
[2023-07-09 20:16] LABS: AMORPHOUS SEDIMENT,URINE MANY (NEGATIVE); BACTERIA,URINE 4+ (NEGATIVE); RBC,URINE TOO NUMEROUS TO CT (0-2/HPF)
[2023-07-09 22:40] VITALS: BP 128/79; PULSE 78
== END 2023-07-09 20:46 | disposition home or self-care (01) ==
LOC: MW.ED 18:28
DX: T83.511A Infection and inflammatory reaction due to indwelling urethral catheter, initial encounter (principal); N39.0 Urinary tract infection, site not specified; I48.91 Unspecified atrial fibrillation; E66.9 Obesity, unspecified; Z68.33 Body mass index [BMI] 33.0-33.9, adult; Z86.16 Personal history of COVID-19; Z79.899 Other long term (current) drug therapy; Z79.82 Long term (current) use of aspirin
CPT/HCPCS: 81001; 87086; 99283; A9270

== ENCOUNTER 2023-07-10 15:15 | Emergency (ER) | payer OTHER ==
[2023-07-10 15:41] LABS: BASOPHILS PERCENT AUTO 0.4 % (0.0-1.5); EOSINOPHILS ABSOLUTE AUTO 0.7 K/uL (0.0-0.7); EOSINOPHILS PERCENT AUTO 7.8 % (0.0-7.0); HEMATOCRIT 41.6 % (38.0-50.0); LYMPHOCYTES ABSOLUTE AUTO 2.6 K/uL (0.6-2.4); LYMPHOCYTES PERCENT AUTO 29.2 % (16.0-40.0); MEAN CORPUSCULAR HEMOGLOBIN 29.6 pg (27.0-32.0); MEAN CORPUSCULAR HGB CONC 33.7 g/dL (31.0-37.0); MEAN CORPUSCULAR VOLUME 87.9 fL (80.0-98.0); MONOCYTES ABSOLUTE AUTO 0.8 K/uL (0.0-0.8); MONOCYTES PERCENT AUTO 8.5 % (0.0-15.0); NEUTROPHILS ABSOLUTE AUTO 4.8 K/uL (1.4-5.7); NEUTROPHILS PERCENT AUTO 54.1 % (48.0-80.0); NRBC ABSOLUTE 0 K/uL; PLATELET COUNT,PLT 236 K/uL (150-400); RED BLOOD CELL COUNT 4.73 M/uL (4.50-5.90); WHITE BLOOD CELL COUNT,WBC 8.94 K/uL (4.0-11.0)
[2023-07-10 16:01] LABS: A/G RATIO 1.1 (0.9-1.6); ALANINE AMINOTRANSFERASE,ALT 41 IU/L (14-63); ALBUMIN 3.7 g/dL (3.4-5.0); ALKALINE PHOSPHATASE 101 U/L (46-116); ASPARTATE AMNIOTRANSFERASE,AST 25 IU/L (15-37); BILIRUBIN TOTAL 0.3 mg/dL (0.2-1.0); BLOOD UREA NITROGEN,BUN 15 mg/dL (7.0-18.0); CALCIUM 9.5 mg/dL (8.5-10.1); CHLORIDE,CL 104 mmol/L (98-107); CREATININE 1.2 mg/dL (0.8-1.3); GLUCOSE RANDOM 116 mg/dL (74-106); POTASSIUM,K 3.9 mmol/L (3.5-5.1); PROTEIN TOTAL,TP 7.1 g/dL (6.4-8.2); SODIUM,NA 140 mmol/L (136-148)
[2023-07-10 16:05] LABS: ESTIMATED GFR 71 mL/min (>60)
[2023-07-10] MEDS ORDERED: Tamsulosin 0.4 MG Cap.ER PO ONE (17:13)
[2023-07-10 18:51] LABS: APPEARANCE,URINE CLEAR; COLOR,URINE YELLOW; GLUCOSE,URINE NEGATIVE (NEGATIVE); KETONES,URINE NEGATIVE (NEGATIVE); LEUKOCYTE ESTERASE,URINE MODERATE (NEGATIVE); NITRITE,URINE NEGATIVE (NEGATIVE); OCCULT BLOOD,URINE LARGE (NEGATIVE); PROTEIN,URINE 100 mg/dL (NEGATIVE); UROBILINOGEN,URINE 0.2 EU/dL (<2.0)
[2023-07-10 18:52] LABS: BILIRUBIN,URINE SMALL (NEGATIVE)
[2023-07-10 19:05] LABS: EPITHELIAL CELLS,URINE NOT SEEN (NONE-FEW); RBC,URINE 75-100 (0-2/HPF); WBC,URINE 30-40 (0-5/HPF)
[2023-07-10 19:06] LABS: BACTERIA,URINE RARE (NEGATIVE)
[2023-07-10] MEDS ORDERED: Acetaminophen/HYDROcodone 325-5 MG Tab PO ONE (19:41)
[2023-07-10 19:53] VITALS: BP 147/89; PULSE 88
== END 2023-07-10 19:50 | disposition home or self-care (01) ==
LOC: MW.ED 15:15
DX: N20.0 Calculus of kidney (principal); E66.9 Obesity, unspecified; Z86.16 Personal history of COVID-19; Z79.899 Other long term (current) drug therapy
CPT/HCPCS: 36415; 74176; 80053; 81001; 85025; 99284; A9270

== ENCOUNTER 2023-08-10 17:06 | Emergency (ER) | payer OTHER ==
[2023-08-10 18:53] LABS: BILIRUBIN,URINE NEGATIVE (NEGATIVE); GLUCOSE,URINE NEGATIVE (NEGATIVE); KETONES,URINE NEGATIVE (NEGATIVE); LEUKOCYTE ESTERASE,URINE SMALL (NEGATIVE); NITRITE,URINE POSITIVE (NEGATIVE); OCCULT BLOOD,URINE LARGE (NEGATIVE); PROTEIN,URINE >=300 mg/dL (NEGATIVE); UROBILINOGEN,URINE 0.2 EU/dL (<2.0)
[2023-08-10 18:56] LABS: APPEARANCE,URINE CLOUDY; COLOR,URINE RED
[2023-08-10 18:57] LABS: BACTERIA,URINE FEW (NEGATIVE); EPITHELIAL CELLS,URINE RARE (NONE-FEW); RBC,URINE TOO NUMEROUS TO CT (0-2/HPF)
[2023-08-10 19:31] VITALS: BP 140/74; PULSE 86
== END 2023-08-10 19:47 | disposition home or self-care (01) ==
LOC: MW.ED 17:06
DX: T83.511A Infection and inflammatory reaction due to indwelling urethral catheter, initial encounter (principal); N13.2 Hydronephrosis with renal and ureteral calculous obstruction; I48.91 Unspecified atrial fibrillation; E66.9 Obesity, unspecified; Z68.23 Body mass index [BMI] 23.0-23.9, adult; Z79.899 Other long term (current) drug therapy; Z86.16 Personal history of COVID-19
CPT/HCPCS: 51705; 74176; 74176-26; 81001; 87086; 99283; 99284

== ENCOUNTER 2023-09-21 13:52 | Emergency (ER) | payer OTHER ==
[2023-09-21 14:09] VITALS: BP 133/73; PULSE 86
== END 2023-09-21 15:00 | disposition home or self-care (01) ==
LOC: MW.ED 13:52
DX: T83.098A Other mechanical complication of other urinary catheter, initial encounter (principal); E66.9 Obesity, unspecified; Z68.34 Body mass index [BMI] 34.0-34.9, adult; Z79.82 Long term (current) use of aspirin; Z79.899 Other long term (current) drug therapy; Z86.16 Personal history of COVID-19; Z87.891 Personal history of nicotine dependence
CPT/HCPCS: 99283

== ENCOUNTER 2023-10-20 18:50 | Emergency (ER) | payer OTHER ==
[2023-10-20 20:14] LABS: APPEARANCE,URINE SLT CLOUDY; BILIRUBIN,URINE NEGATIVE (NEGATIVE); COLOR,URINE YELLOW; GLUCOSE,URINE NEGATIVE (NEGATIVE); KETONES,URINE NEGATIVE (NEGATIVE); LEUKOCYTE ESTERASE,URINE LARGE (NEGATIVE); NITRITE,URINE POSITIVE (NEGATIVE); OCCULT BLOOD,URINE LARGE (NEGATIVE); PH,URINE 6.5 (5.0-8.0); PROTEIN,URINE NEGATIVE (NEGATIVE); UROBILINOGEN,URINE 0.2 EU/dL (<2.0)
[2023-10-20] MEDS ORDERED: Ciprofloxacin 500 MG Tab PO ONE (20:21)
[2023-10-20 20:24] LABS: EPITHELIAL CELLS,URINE RARE (NONE-FEW)
[2023-10-20 20:25] LABS: BACTERIA,URINE 1+ (NEGATIVE); WBC,URINE TO NUMEROUS TO COUNT (0-5/HPF)
[2023-10-20 21:31] VITALS: BP 142/97; PULSE 86
== END 2023-10-20 20:30 | disposition home or self-care (01) ==
LOC: MW.ED 18:50
DX: T83.511A Infection and inflammatory reaction due to indwelling urethral catheter, initial encounter (principal); I48.91 Unspecified atrial fibrillation; E66.9 Obesity, unspecified; Z86.16 Personal history of COVID-19; Z79.82 Long term (current) use of aspirin; Z79.899 Other long term (current) drug therapy; Z68.34 Body mass index [BMI] 34.0-34.9, adult
CPT/HCPCS: 51705; 81001; 87086; 99283; A9270

== ENCOUNTER 2023-10-30 17:31 | Emergency (ER) | payer OTHER ==
[2023-10-30 19:15] VITALS: BP 149/72; PULSE 64
== END 2023-10-30 19:13 | disposition home or self-care (01) ==
LOC: MW.ED 17:31
DX: T83.098A Other mechanical complication of other urinary catheter, initial encounter (principal); I10 Essential (primary) hypertension; E66.9 Obesity, unspecified; Z86.16 Personal history of COVID-19; Z79.899 Other long term (current) drug therapy; Z79.82 Long term (current) use of aspirin; Z68.34 Body mass index [BMI] 34.0-34.9, adult
CPT/HCPCS: 51705; 99283

== ENCOUNTER 2023-11-12 12:31 | Emergency (ER) | payer OTHER ==
[2023-11-12 12:45] VITALS: BP 163/79; PULSE 98
== END 2023-11-12 14:19 | disposition home or self-care (01) ==
LOC: MW.ED 12:31
DX: T83.098A Other mechanical complication of other urinary catheter, initial encounter (principal); I10 Essential (primary) hypertension; Z79.82 Long term (current) use of aspirin; Z86.16 Personal history of COVID-19; Z79.899 Other long term (current) drug therapy
CPT/HCPCS: 99283

== ENCOUNTER 2023-11-15 01:12 | Emergency (ER) | payer OTHER ==
[2023-11-15 01:58] VITALS: BP 147/74; PULSE 90
== END 2023-11-15 01:57 | disposition home or self-care (01) ==
LOC: MW.ED 01:12
DX: T83.021A Displacement of indwelling urethral catheter, initial encounter (principal); I10 Essential (primary) hypertension; E66.9 Obesity, unspecified; Z79.82 Long term (current) use of aspirin; Z79.899 Other long term (current) drug therapy; Z86.16 Personal history of COVID-19; Z68.35 Body mass index [BMI] 35.0-35.9, adult
CPT/HCPCS: 51702; 99283

== ENCOUNTER 2024-04-28 18:50 | Emergency (ER) | payer OTHER ==
[2024-04-28 23:14] VITALS: BP 149/89; PULSE 86
== END 2024-04-28 22:01 | disposition home or self-care (01) ==
LOC: MW.ED 18:50
DX: T83.098A Other mechanical complication of other urinary catheter, initial encounter (principal); I10 Essential (primary) hypertension; Z75.8 Other problems related to medical facilities and other health care; Z79.82 Long term (current) use of aspirin; Z79.899 Other long term (current) drug therapy; Y73.2 Prosthetic and other implants, materials and accessory gastroenterology and urology devices associated with adverse incidents
CPT/HCPCS: 51705; 99281; 99283

== ENCOUNTER 2024-05-18 12:32 | Emergency (ER) | payer OTHER ==
[2024-05-18 13:53] LABS: APPEARANCE,URINE SLT CLOUDY; BILIRUBIN,URINE NEGATIVE (NEGATIVE); COLOR,URINE YELLOW; GLUCOSE,URINE NEGATIVE (NEGATIVE); KETONES,URINE NEGATIVE (NEGATIVE); LEUKOCYTE ESTERASE,URINE LARGE (NEGATIVE); NITRITE,URINE POSITIVE (NEGATIVE); OCCULT BLOOD,URINE LARGE (NEGATIVE); PH,URINE 6.5 (5.0-8.0); PROTEIN,URINE 100 mg/dL (NEGATIVE); UROBILINOGEN,URINE 0.2 EU/dL (<2.0)
[2024-05-18 14:01] LABS: BACTERIA,URINE 3+ (NEGATIVE); EPITHELIAL CELLS,URINE MODERATE (NONE-FEW); RBC,URINE 20-30 (0-2/HPF); WBC,URINE 15-20 (0-5/HPF)
[2024-05-18 14:02] LABS: AMORPHOUS SEDIMENT,URINE LIGHT (NEGATIVE)
[2024-05-18 14:45] VITALS: BP 140/72; PULSE 94
== END 2024-05-18 14:45 | disposition home or self-care (01) ==
LOC: MW.ED 12:32
DX: T83.511A Infection and inflammatory reaction due to indwelling urethral catheter, initial encounter (principal); N39.0 Urinary tract infection, site not specified; N32.9 Bladder disorder, unspecified; Z75.8 Other problems related to medical facilities and other health care; Y73.2 Prosthetic and other implants, materials and accessory gastroenterology and urology devices associated with adverse incidents
CPT/HCPCS: 51702; 81001; 87086; 99283

== ENCOUNTER 2024-07-06 15:44 | Emergency (ER) | payer OTHER ==
[2024-07-06 17:27] VITALS: BP 131/83; PULSE 104
[2024-07-06 19:15] LABS: BILIRUBIN,URINE NEGATIVE (NEGATIVE); COLOR,URINE YELLOW; GLUCOSE,URINE NEGATIVE (NEGATIVE); KETONES,URINE NEGATIVE (NEGATIVE); LEUKOCYTE ESTERASE,URINE LARGE (NEGATIVE); NITRITE,URINE POSITIVE (NEGATIVE); OCCULT BLOOD,URINE MODERATE (NEGATIVE); PROTEIN,URINE NEGATIVE (NEGATIVE); UROBILINOGEN,URINE 0.2 EU/dL (<2.0)
[2024-07-06 19:18] LABS: APPEARANCE,URINE HAZY
[2024-07-06 19:21] LABS: BACTERIA,URINE 2+ (NEGATIVE); EPITHELIAL CELLS,URINE RARE (NONE-FEW)
== END 2024-07-06 21:01 | disposition home or self-care (01) ==
LOC: MW.ED 15:44
DX: T83.511A Infection and inflammatory reaction due to indwelling urethral catheter, initial encounter (principal); N39.0 Urinary tract infection, site not specified; I10 Essential (primary) hypertension; E66.9 Obesity, unspecified; Z79.899 Other long term (current) drug therapy; Z75.8 Other problems related to medical facilities and other health care; Z79.82 Long term (current) use of aspirin; Z68.35 Body mass index [BMI] 35.0-35.9, adult
CPT/HCPCS: 81001; 87086; 87088; 87184; 87186; 99284

== ENCOUNTER 2024-07-10 11:34 | Emergency (ER) | payer OTHER ==
[2024-07-10 13:48] LABS: BILIRUBIN,URINE NEGATIVE (NEGATIVE); COLOR,URINE YELLOW; GLUCOSE,URINE NEGATIVE (NEGATIVE); KETONES,URINE NEGATIVE (NEGATIVE); LEUKOCYTE ESTERASE,URINE SMALL (NEGATIVE); NITRITE,URINE NEGATIVE (NEGATIVE); OCCULT BLOOD,URINE MODERATE (NEGATIVE); PROTEIN,URINE 100 mg/dL (NEGATIVE); UROBILINOGEN,URINE 0.2 EU/dL (<2.0)
[2024-07-10 13:49] LABS: APPEARANCE,URINE HAZY
[2024-07-10 13:54] LABS: BACTERIA,URINE FEW (NEGATIVE); EPITHELIAL CELLS,URINE NOT SEEN (NONE-FEW); MUCUS,URINE LIGHT (NONE-MOD)
[2024-07-10 14:20] VITALS: BP 138/78; PULSE 91
== END 2024-07-10 14:18 | disposition home or self-care (01) ==
LOC: MW.ED 11:34
DX: T83.511D Infection and inflammatory reaction due to indwelling urethral catheter, subsequent encounter (principal); F17.210 Nicotine dependence, cigarettes, uncomplicated; I10 Essential (primary) hypertension; E66.9 Obesity, unspecified; Z68.35 Body mass index [BMI] 35.0-35.9, adult; Z79.899 Other long term (current) drug therapy; Z79.82 Long term (current) use of aspirin; Z75.8 Other problems related to medical facilities and other health care
CPT/HCPCS: 51702; 81001; 87086; 99283

== ENCOUNTER 2024-12-02 16:35 | Emergency (ER) | payer OTHER ==
[2024-12-02 18:53] VITALS: BP 150/75; PULSE 88
[2024-12-02] MEDS: Ciprofloxacin 500 MG Tab PO ONE (20:03)
[2024-12-02 20:43] LABS: BILIRUBIN,URINE NEGATIVE (NEGATIVE); COLOR,URINE YELLOW; GLUCOSE,URINE NEGATIVE (NEGATIVE); KETONES,URINE NEGATIVE (NEGATIVE); LEUKOCYTE ESTERASE,URINE SMALL (NEGATIVE); NITRITE,URINE NEGATIVE (NEGATIVE); OCCULT BLOOD,URINE LARGE (NEGATIVE); PROTEIN,URINE NEGATIVE (NEGATIVE); UROBILINOGEN,URINE 0.2 EU/dL (<2.0)
[2024-12-02 20:50] LABS: APPEARANCE,URINE HAZY; WBC,URINE 0-2 (0-5/HPF)
[2024-12-02 20:51] LABS: BACTERIA,URINE FEW (NEGATIVE); EPITHELIAL CELLS,URINE RARE (NONE-FEW); MUCUS,URINE NOT SEEN (NONE-MOD)
== END 2024-12-02 20:50 | disposition home or self-care (01) ==
LOC: MW.ED 16:35
DX: N39.0 Urinary tract infection, site not specified (principal); Z96.0 Presence of urogenital implants; I10 Essential (primary) hypertension; E66.9 Obesity, unspecified; Z79.899 Other long term (current) drug therapy; Z75.8 Other problems related to medical facilities and other health care; Z68.37 Body mass index [BMI] 37.0-37.9, adult
CPT/HCPCS: 51702; 81001; 87086; 99283; A9270

== ENCOUNTER 2025-01-05 15:50 | Emergency (ER) | payer OTHER ==
[2025-01-05 17:10] LABS: APPEARANCE,URINE CLOUDY; BILIRUBIN,URINE NEGATIVE (NEGATIVE); COLOR,URINE YELLOW; GLUCOSE,URINE NEGATIVE (NEGATIVE); KETONES,URINE NEGATIVE (NEGATIVE); LEUKOCYTE ESTERASE,URINE LARGE (NEGATIVE); NITRITE,URINE POSITIVE (NEGATIVE); OCCULT BLOOD,URINE MODERATE (NEGATIVE); PROTEIN,URINE 30 mg/dL (NEGATIVE); UROBILINOGEN,URINE 0.2 EU/dL (<2.0)
[2025-01-05 17:17] LABS: BACTERIA,URINE 3+ (NEGATIVE); EPITHELIAL CELLS,URINE FEW (NONE-FEW); WBC,URINE 15-20 (0-5/HPF)
[2025-01-05 17:18] LABS: AMORPHOUS SEDIMENT,URINE MODERATE (NEGATIVE)
[2025-01-05] MEDS: Ciprofloxacin 500 MG Tab PO ONE (18:19)
[2025-01-05 18:22] VITALS: BP 148/83; PULSE 86
== END 2025-01-05 18:33 | disposition home or self-care (01) ==
LOC: MW.ED 15:50
DX: N39.0 Urinary tract infection, site not specified (principal); R31.9 Hematuria, unspecified; I10 Essential (primary) hypertension; E66.9 Obesity, unspecified; F17.210 Nicotine dependence, cigarettes, uncomplicated; Z79.82 Long term (current) use of aspirin; Z79.84 Long term (current) use of oral hypoglycemic drugs; Z79.899 Other long term (current) drug therapy
CPT/HCPCS: 81001; 87086; 99283; A9270

== ENCOUNTER 2025-02-22 16:17 | Emergency (ER) | payer OTHER ==
[2025-02-22 16:42] VITALS: BP 149/74
[2025-02-22 17:38] VITALS: PULSE 65
== END 2025-02-22 17:38 | disposition home or self-care (01) ==
LOC: MW.ED 16:17
DX: Z46.6 Encounter for fitting and adjustment of urinary device (principal); I10 Essential (primary) hypertension; Z75.8 Other problems related to medical facilities and other health care; Z79.899 Other long term (current) drug therapy; Z79.51 Long term (current) use of inhaled steroids; Z79.84 Long term (current) use of oral hypoglycemic drugs; Z79.82 Long term (current) use of aspirin
CPT/HCPCS: 51705; 99282; 99283

== ENCOUNTER 2025-02-26 14:53 | Emergency (ER) | payer OTHER ==
[2025-02-26 17:33] VITALS: BP 120/81; PULSE 85
== END 2025-02-26 16:51 | disposition home or self-care (01) ==
LOC: MW.ED 14:53
DX: R43.9 Unspecified disturbances of smell and taste (principal); I10 Essential (primary) hypertension; E66.9 Obesity, unspecified; F17.210 Nicotine dependence, cigarettes, uncomplicated; Z20.822 Contact with and (suspected) exposure to COVID-19; Z75.8 Other problems related to medical facilities and other health care; Z79.899 Other long term (current) drug therapy; Z79.82 Long term (current) use of aspirin; Z68.36 Body mass index [BMI] 36.0-36.9, adult
CPT/HCPCS: 87428-QW; 99282; 99283

== ENCOUNTER 2025-03-16 02:31 | Emergency (ER) | payer OTHER ==
[2025-03-16 03:31] LABS: APPEARANCE,URINE SLT CLOUDY; BILIRUBIN,URINE NEGATIVE (NEGATIVE); COLOR,URINE YELLOW; GLUCOSE,URINE NEGATIVE (NEGATIVE); KETONES,URINE NEGATIVE (NEGATIVE); LEUKOCYTE ESTERASE,URINE MODERATE (NEGATIVE); NITRITE,URINE NEGATIVE (NEGATIVE); OCCULT BLOOD,URINE LARGE (NEGATIVE); PROTEIN,URINE 100 mg/dL (NEGATIVE); UROBILINOGEN,URINE 0.2 EU/dL (<2.0)
[2025-03-16 03:35] LABS: BACTERIA,URINE 3+ (NEGATIVE); EPITHELIAL CELLS,URINE FEW (NONE-FEW); WBC,URINE 15-20 (0-5/HPF)
[2025-03-16 03:36] LABS: MUCUS,URINE MODERATE (NONE-MOD)
[2025-03-16 03:47] VITALS: BP 148/74; PULSE 86
== END 2025-03-16 03:48 | disposition home or self-care (01) ==
LOC: MW.ED 02:31
DX: T83.511A Infection and inflammatory reaction due to indwelling urethral catheter, initial encounter (principal); N39.0 Urinary tract infection, site not specified; I10 Essential (primary) hypertension; Z79.82 Long term (current) use of aspirin; Z79.899 Other long term (current) drug therapy; Z79.84 Long term (current) use of oral hypoglycemic drugs
CPT/HCPCS: 51705; 81001; 87086; 99284

== ENCOUNTER 2025-04-17 21:07 | Emergency (ER) | payer OTHER ==
[2025-04-17 21:54] VITALS: BP 133/68; PULSE 89
== END 2025-04-17 21:57 | disposition home or self-care (01) ==
LOC: MW.ED 21:07
DX: T83.090A Other mechanical complication of cystostomy catheter, initial encounter (principal); I10 Essential (primary) hypertension; Z79.82 Long term (current) use of aspirin; Z79.899 Other long term (current) drug therapy; Y84.6 Urinary catheterization as the cause of abnormal reaction of the patient, or of later complication, without mention of misadventure at the time of the procedure
CPT/HCPCS: 51705; 99283

== ENCOUNTER 2025-04-28 12:40 | Emergency (ER) | payer OTHER ==
[2025-04-28 14:32] VITALS: BP 137/73; PULSE 93
== END 2025-04-28 17:53 | disposition home or self-care (01) ==
LOC: MW.ED 12:40
DX: T83.038A Leakage of other urinary catheter, initial encounter (principal); I10 Essential (primary) hypertension; E66.9 Obesity, unspecified; Z75.3 Unavailability and inaccessibility of health-care facilities; Z79.82 Long term (current) use of aspirin; Z79.84 Long term (current) use of oral hypoglycemic drugs; Z79.899 Other long term (current) drug therapy; Z68.36 Body mass index [BMI] 36.0-36.9, adult
CPT/HCPCS: 51705; 99283

== ENCOUNTER 2025-08-06 04:53 | Emergency (ER) | payer OTHER ==
[2025-08-06 05:49] VITALS: BP 122/71; PULSE 84
== END 2025-08-06 05:49 | disposition home or self-care (01) ==
LOC: MW.ED 04:53
DX: T83.010A Breakdown (mechanical) of cystostomy catheter, initial encounter (principal); I10 Essential (primary) hypertension; Z79.82 Long term (current) use of aspirin; Z79.84 Long term (current) use of oral hypoglycemic drugs; Z79.899 Other long term (current) drug therapy
CPT/HCPCS: 51705; 99283

== ENCOUNTER 2025-08-07 11:38 | Emergency (ER) | payer OTHER ==
[2025-08-07 12:15] VITALS: BP 154/82; PULSE 97
== END 2025-08-07 12:23 | disposition home or self-care (01) ==
LOC: MW.ED 11:38
DX: Z76.0 Encounter for issue of repeat prescription (principal); I10 Essential (primary) hypertension; Z79.82 Long term (current) use of aspirin; Z79.899 Other long term (current) drug therapy
CPT/HCPCS: 99281

== ENCOUNTER 2025-08-18 12:47 | Inpatient (IN) | payer OTHER ==
[2025-08-18] MEDS ORDERED: Sodium Chloride 0.9% 10 ML Syringe FLUSH PRN ×2 (13:18→16:11)
[2025-08-18] MEDS ORDERED: Sodium Chloride 0.9% 2.5 ML Syringe FLUSH PRN ×2 (13:18→16:11)
[2025-08-18 13:24] LABS: BASOPHILS ABSOLUTE AUTO 0.06 K/uL (0.00-0.20); BASOPHILS PERCENT AUTO 0.3 % (0.0-1.0); EOSINOPHILS ABSOLUTE AUTO 0.58 K/uL (0.00-0.45); EOSINOPHILS PERCENT AUTO 3.1 % (0.0-6.0); IMMATURE GRAN ABSOLUTE AUTO 0.08 K/uL (0.00-0.05); IMMATURE GRAN PERCENT AUTO 0.4 % (0.0-0.4); LYMPHOCYTES ABSOLUTE AUTO 0.75 K/uL (1.00-4.80); LYMPHOCYTES PERCENT AUTO 4.0 % (24.0-44.0); MEAN PLATELET VOLUME 9.8 fL (9.4-12.4); MONOCYTES ABSOLUTE AUTO 0.70 K/uL (0.00-0.80); MONOCYTES PERCENT AUTO 3.7 % (0.0-8.0); NEUTROPHILS ABSOLUTE AUTO 16.56 K/uL (1.80-7.70); NEUTROPHILS PERCENT AUTO 88.5 % (41.0-71.0); NRBC ABSOLUTE 0.00 K/uL (0.00-0.02); NRBC PERCENT 0.0 /100WBC (0.0-0.2); PLATELET COUNT,PLT 211 K/uL (150-400); RED BLOOD CELL COUNT 5.29 M/uL (4.52-5.90); WHITE BLOOD CELL COUNT,WBC 18.73 K/uL (3.9-11.3)
[2025-08-18] MEDS: Metoprolol Tartrate 5 MG/5 ML SDV IVPUSH ONE (13:32)
[2025-08-18 13:57] LABS: A/G RATIO 1.1 (0.9-1.6); ALANINE AMINOTRANSFERASE,ALT 93.0 IU/L (14-63); ASPARTATE AMNIOTRANSFERASE,AST 55.0 IU/L (15-37); BILIRUBIN TOTAL 0.6 mg/dL (0.2-1.0); BLOOD UREA NITROGEN,BUN 14.0 mg/dL (7.0-18.0); CARBON DIOXIDE,CO2 23.9 mmol/L (21.0-32.0); CHLORIDE,CL 103.0 mmol/L (98-107); CREATININE 1.2 mg/dL (0.8-1.3); EST CRCL DRUG DOSING (CG) 68.44 mL/min; GLUCOSE RANDOM 97.0 mg/dL (74-106); POTASSIUM,K 4.2 mmol/L (3.5-5.1); PRO B-TYPE NATRIUR PEPT,BNPPRO 48.0 pg/mL (0-125); PROTEIN TOTAL,TP 7.6 g/dL (6.4-8.2); SODIUM,NA 141.0 mmol/L (136-148)
[2025-08-18 13:58] LABS: ESTIMATED GFR 70.0 mL/min (>60)
[2025-08-18 14:04] LABS: CORONAVIRUS COVID-19 NAA NEGATIVE (NEGATIVE); INFLUENZA A NAA NEGATIVE (NEGATIVE); INFLUENZA B NAA NEGATIVE (NEGATIVE)
[2025-08-18] MEDS: cefTRIAXone 2 GM in Water For Injection, Sterile 20 ML IVPUSH ONE (15:13)
[2025-08-18 15:45] LABS: LACTIC ACID 1.7 mmol/L (0.4-2.0)
[2025-08-18] MEDS: Iopamidol 755 Mg/ML 100 ML Bottle IVPUSH ONE (15:54)
[2025-08-18] MEDS ORDERED: Albuterol 0.083% 2.5 MG/3 ML Neb Soln NEB PRN (16:11)
[2025-08-18] MEDS ORDERED: Ondansetron 4 MG/2 ML SDV IVPUSH PRN (16:11)
[2025-08-18] MEDS: Codeine/guaiFENesin 10-100 MG/5 ML Syrup 5 ML Cup PO PRN (22:13)
[2025-08-19] MEDS: Metoprolol Tartrate 5 MG/5 ML SDV IVPUSH ONE ×2 (00:01→00:35)
[2025-08-19] MEDS: Magnesium Sulfate 2 GM/50 mL 2 GM in Premix Bag 1 BAG IV ONE (01:26)
[2025-08-19] MEDS: Diltiazem 100 MG in Sodium Chloride 0.9% 100 ML IV SCH (01:28)
[2025-08-19] MEDS: Diltiazem 25 MG/5 ML SDV IVPUSH ONE (01:36)
[2025-08-19 06:13] LABS: BASOPHILS ABSOLUTE AUTO 0.05 K/uL (0.00-0.20); BASOPHILS PERCENT AUTO 0.4 % (0.0-1.0); EOSINOPHILS ABSOLUTE AUTO 1.37 K/uL (0.00-0.45); EOSINOPHILS PERCENT AUTO 10.7 % (0.0-6.0); IMMATURE GRAN ABSOLUTE AUTO 0.03 K/uL (0.00-0.05); IMMATURE GRAN PERCENT AUTO 0.2 % (0.0-0.4); LYMPHOCYTES ABSOLUTE AUTO 1.39 K/uL (1.00-4.80); LYMPHOCYTES PERCENT AUTO 10.9 % (24.0-44.0); MEAN PLATELET VOLUME 10.0 fL (9.4-12.4); MONOCYTES ABSOLUTE AUTO 0.77 K/uL (0.00-0.80); MONOCYTES PERCENT AUTO 6.0 % (0.0-8.0); NEUTROPHILS ABSOLUTE AUTO 9.17 K/uL (1.80-7.70); NEUTROPHILS PERCENT AUTO 71.8 % (41.0-71.0); NRBC ABSOLUTE 0.00 K/uL (0.00-0.02); NRBC PERCENT 0.0 /100WBC (0.0-0.2); PLATELET COUNT,PLT 205 K/uL (150-400); RED BLOOD CELL COUNT 4.50 M/uL (4.52-5.90); WHITE BLOOD CELL COUNT,WBC 12.78 K/uL (3.9-11.3)
[2025-08-19 06:41] LABS: BLOOD UREA NITROGEN,BUN 12.0 mg/dL (7.0-18.0); CARBON DIOXIDE,CO2 21.5 mmol/L (21.0-32.0); CHLORIDE,CL 109.0 mmol/L (98-107); CREATININE 1.0 mg/dL (0.8-1.3); EST CRCL DRUG DOSING (CG) 82.13 mL/min; ESTIMATED GFR 87.0 mL/min (>60); GLUCOSE RANDOM 117.0 mg/dL (74-106); POTASSIUM,K 3.9 mmol/L (3.5-5.1); SODIUM,NA 142.0 mmol/L (136-148)
[2025-08-19] MEDS: Teriflunomide [Aubagio] 14 MG Tablet PO SCH (09:09)
[2025-08-19] MEDS: Potassium Chloride 20 MEQ Tab.ER PO ONE (11:48)
[2025-08-19] MEDS: cefTRIAXone 2 GM in Water For Injection, Sterile 20 ML IVPUSH SCH (11:49)
[2025-08-20 05:07] LABS: BORDETELLA PARAPERT IS1001 Not Detected (Not Detected)
[2025-08-20] MEDS: Teriflunomide [Aubagio] 14 MG Tablet PO SCH (06:15)
[2025-08-20 06:20] LABS: BASOPHILS ABSOLUTE AUTO 0.04 K/uL (0.00-0.20); BASOPHILS PERCENT AUTO 0.4 % (0.0-1.0); EOSINOPHILS ABSOLUTE AUTO 1.42 K/uL (0.00-0.45); EOSINOPHILS PERCENT AUTO 13.0 % (0.0-6.0); IMMATURE GRAN ABSOLUTE AUTO 0.02 K/uL (0.00-0.05); IMMATURE GRAN PERCENT AUTO 0.2 % (0.0-0.4); LYMPHOCYTES ABSOLUTE AUTO 1.38 K/uL (1.00-4.80); LYMPHOCYTES PERCENT AUTO 12.6 % (24.0-44.0); MEAN PLATELET VOLUME 11.0 fL (9.4-12.4); MONOCYTES ABSOLUTE AUTO 0.86 K/uL (0.00-0.80); MONOCYTES PERCENT AUTO 7.9 % (0.0-8.0); NEUTROPHILS ABSOLUTE AUTO 7.22 K/uL (1.80-7.70); NEUTROPHILS PERCENT AUTO 65.9 % (41.0-71.0); NRBC ABSOLUTE 0.00 K/uL (0.00-0.02); NRBC PERCENT 0.0 /100WBC (0.0-0.2); PLATELET COUNT,PLT 190 K/uL (150-400); RED BLOOD CELL COUNT 4.33 M/uL (4.52-5.90); WHITE BLOOD CELL COUNT,WBC 10.94 K/uL (3.9-11.3)
[2025-08-20 06:30] LABS: BLOOD UREA NITROGEN,BUN 10.0 mg/dL (7.0-18.0); CARBON DIOXIDE,CO2 28.3 mmol/L (21.0-32.0); CHLORIDE,CL 108.0 mmol/L (98-107); CREATININE 0.9 mg/dL (0.8-1.3); EST CRCL DRUG DOSING (CG) 91.25 mL/min; ESTIMATED GFR 98.0 mL/min (>60); GLUCOSE RANDOM 103.0 mg/dL (74-106); POTASSIUM,K 4.0 mmol/L (3.5-5.1); SODIUM,NA 143.0 mmol/L (136-148)
[2025-08-20 10:07] VITALS: BP 146/74; PULSE 99
[2025-08-20] MEDS: Metoprolol Succinate 100 MG Tab.ER PO SCH (10:07)
== END 2025-08-20 11:02 | disposition home or self-care (01) | DRG 871 ==
LOC: MW.ED 12:47 → MW.ICU 15:25 → MW.ED 15:56
PROVIDERS: ADMIT Internal Medicine; ATTEND Internal Medicine
DX: A41.9 Sepsis, unspecified organism (principal); J18.9 Pneumonia, unspecified organism; J96.01 Acute respiratory failure with hypoxia; G82.20 Paraplegia, unspecified; F17.200 Nicotine dependence, unspecified, uncomplicated; N39.0 Urinary tract infection, site not specified; G35.D Multiple sclerosis, unspecified; F17.210 Nicotine dependence, cigarettes, uncomplicated; Z68.38 Body mass index [BMI] 38.0-38.9, adult; F32.A Depression, unspecified; F43.10 Post-traumatic stress disorder, unspecified; E66.9 Obesity, unspecified; I10 Essential (primary) hypertension; R74.01 Elevation of levels of liver transaminase levels; J31.0 Chronic rhinitis; I48.0 Paroxysmal atrial fibrillation; Z93.59 Other cystostomy status; Z79.82 Long term (current) use of aspirin; Z79.899 Other long term (current) drug therapy; Z79.84 Long term (current) use of oral hypoglycemic drugs; Z99.3 Dependence on wheelchair; Z68.37 Body mass index [BMI] 37.0-37.9, adult
CPT/HCPCS: 36415; 71045; 80053; 83605; 83880; 84484; 85025; 87040 ×2; 87486; 87581; 87633; 87636; 93005; 96365; 96375; 99285; A4216; J0456; J0696; J3490; J7030 ×2; J7050; 71275; 71275-26; 80048; 83735; 93010; 93306; A9270-GY; J1650; J3475; Q9967

== ENCOUNTER 2025-09-30 18:33 | Emergency (ER) | payer OTHER ==
[2025-09-30 21:07] VITALS: BP 138/86; PULSE 97
[2025-09-30 21:19] LABS: APPEARANCE,URINE SLT CLOUDY; GLUCOSE,URINE NEGATIVE (NEGATIVE); OCCULT BLOOD,URINE MODERATE (NEGATIVE)
[2025-09-30 21:27] LABS: EPITHELIAL CELLS,URINE FEW (NONE-FEW)
== END 2025-09-30 23:17 | disposition home or self-care (01) ==
LOC: MW.ED 18:33
DX: N39.0 Urinary tract infection, site not specified (principal); B37.9 Candidiasis, unspecified; E66.9 Obesity, unspecified; I10 Essential (primary) hypertension; I48.91 Unspecified atrial fibrillation; Z75.3 Unavailability and inaccessibility of health-care facilities; Z79.899 Other long term (current) drug therapy; Z79.82 Long term (current) use of aspirin; Z79.01 Long term (current) use of anticoagulants
CPT/HCPCS: 81001; 87086; 99283; A9270

== ENCOUNTER 2025-10-13 17:09 | Emergency (ER) | payer OTHER ==
[2025-10-13 17:36] VITALS: BP 135/83; PULSE 94
[2025-10-13 19:42] LABS: GLUCOSE,URINE NEGATIVE (NEGATIVE); OCCULT BLOOD,URINE SMALL (NEGATIVE)
[2025-10-13 19:46] LABS: APPEARANCE,URINE HAZY
[2025-10-13 19:49] LABS: EPITHELIAL CELLS,URINE FEW (NONE-FEW)
== END 2025-10-13 19:55 | disposition home or self-care (01) ==
LOC: MW.ED 17:09
DX: R31.0 Gross hematuria (principal); I48.91 Unspecified atrial fibrillation; I10 Essential (primary) hypertension; F17.200 Nicotine dependence, unspecified, uncomplicated; Z79.82 Long term (current) use of aspirin; Z79.899 Other long term (current) drug therapy; Z43.6 Encounter for attention to other artificial openings of urinary tract
CPT/HCPCS: 51705; 81001; 87086; 99283